=== PATIENT | female | born 1995 | race Caucasian/White ===

== ENCOUNTER 2017-10-15 17:25 | Emergency (ER) | payer OTHER ==
[~2017-10-15] VITALS: Ht 165.1 cm; Wt 86.0 kg
[~2017-10-15 17:25] MED LIST: ZIPR1CAP27 PO; ZOFR4TAB3 SL
[2017-10-15 17:38] VITALS: BP 147/56; PULSE 99; RESP 18; TEMP 99.1; O2SAT 97
[2017-10-15] MEDS ORDERED: SODIUM CHLOR 0.9% 1000 ML INJ 1,000 ML IV SCH (22:18)
--- NOTE | 2017-10-15 22:24 | PD ---
HPI Chief Complaint: GI Complaint Time Seen by Provider: 22:13 Travel History International Travel<30 days: No Contact w/Intl Traveler<30days: No Traveled to known affect area: No History of Present Illness HPI The patient is a 22-year-old female who presents to the emergency department for nausea and vomiting in . The patient is a 22-year-old female who states she is currently homeless in this is causing a lot of stress and anxiety in her life. The patient states she is currently 14 weeks and when she worries about her living conditions she will become lightheaded, dizzy, developed a headache, and then have nausea followed by vomiting. The patient states she was seen in the emergency department a one prior visit and given a list of shelters and outpatient resources, however, she states she keeps getting sent in a [place] and nobody is able to help her current living situation. The patient denies any lower abdominal pain, vaginal bleeding, or discharge. The patient states the pain is epigastric and starts after vomiting. Symptoms are moderate, appear to be exacerbated by her current living situation is homeless and anxiety. The patient states she is currently trying to sell her car, with sleep in her car, however, the car is unregistered. The patient states she has no local family and no funds to secure housing. [facility] Past Medical History Diminished Hearing: No ?: Social History Alcohol Use: No Tobacco Use: No Substance Use: Yes (Marijuana use occasionally) Allergies-Medications (Allergen,Severity, Reaction): Coded Allergies: No Known Allergies (Unverified , 10/15/17) Reported Meds & Prescriptions Reported Meds & Active Scripts Active Zofran Odt (Ondansetron Odt) 4 Mg Tab 4 Mg SL Q6HR PRN Review of Systems Except as stated in HPI: all other systems reviewed are Neg General / Constitutional: No: Fever Cardiovascular: No: Chest Pain or Discomfort Respiratory: No: Shortness of Breath Gastrointestinal: Positive: Nausea, Vomiting, Abdominal Pain Genitourinary: No: Dysuria Physical Exam Narrative GENERAL: Awake, alert, tearful 22-year-old female who appears her stated age and is in no acute respiratory distress. SKIN: Focused skin assessment warm/dry. HEAD: Atraumatic. Normocephalic. EYES: Mild injection secondary to crying. ENT: No nasal bleeding or discharge. Mucous membranes pink and moist. NECK: Trachea midline. No JVD. CARDIOVASCULAR: Regular rate and rhythm. No murmur appreciated. RESPIRATORY: No accessory muscle use. Clear to auscultation. Breath sounds equal bilaterally. GASTROINTESTINAL: Abdomen soft, minimal epigastric tenderness, negative Pugh' s. MUSCULOSKELETAL: No obvious deformities. No clubbing. No cyanosis. No edema. NEUROLOGICAL: Awake and alert. No obvious cranial nerve deficits. Motor grossly within normal limits. Normal speech. PSYCHIATRIC: Appropriate mood and affect; insight and judgment normal. Data Data Last Documented VS Vital Signs Date Time Temp Pulse Resp B/P (MAP) Pulse Ox O2 Delivery O2 Flow Rate FiO2 10/15/17 22:26 18 99 Room Air 10/15/17 17:38 99.1 99 147/56 (86) Orders Orders Complete Blood Count With Diff (10/15/17 22:18) Comprehensive Metabolic Panel (10/15/17 22:18) Lipase (10/15/17 22:18) Urinalysis - C+S If Indicated (10/15/17 22:18) Iv Access Insert/Monitor (10/15/17 22:18) Ecg Monitoring (10/15/17 22:18) Oximetry (10/15/17 22:18) Sodium Chlor 0.9% 1000 Ml Inj (Ns 1000 M (10/15/17 22:18) Sodium Chloride 0.9% Flush (Ns Flush) (10/15/17 22:30) Ondansetron Odt (Zofran Odt) (10/15/17 22:30) Ed Poc Ultrasound (10/15/17 ) Sodium Chlor 0.9% 1000 Ml Inj (Ns 1000 M (10/15/17 23:30) Labs Laboratory Tests Test 10/15/17 22:45 White Blood Count 15.5 TH/MM3 Red Blood Count 4.62 MIL/MM3 Hemoglobin 14.4 GM/DL Hematocrit 41.4 % Mean Corpuscular Volume 89.6 FL Mean Corpuscular Hemoglobin 31.3 PG Mean Corpuscular Hemoglobin Concent 34.9 % Red Cell Distribution Width 12.8 % Platelet Count 317 TH/MM3 Mean Platelet Volume 8.3 FL Neutrophils (%) (Auto) 65.8 % Lymphocytes (%) (Auto) 25.6 % Monocytes (%) (Auto) 6.3 % Eosinophils (%) (Auto) 1.8 % Basophils (%) (Auto) 0.5 % Neutrophils # (Auto) 10.2 TH/MM3 Lymphocytes # (Auto) 4.0 TH/MM3 Monocytes # (Auto) 1.0 TH/MM3 Eosinophils # (Auto) 0.3 TH/MM3 Basophils # (Auto) 0.1 TH/MM3 CBC Comment AUTO DIFF Urine Color YELLOW Urine Turbidity HAZY Urine pH 6.0 Urine Specific [place] 1.016 Urine Protein NEG mg/dL Urine Glucose (UA) NEG mg/dL Urine Ketones 80 OR GREATER mg/dL Urine Occult Blood NEG Urine Nitrite NEG Urine Bilirubin NEG Urine Urobilinogen LESS THAN 2 mg/dL Urine Leukocyte Esterase NEG Urine RBC 1 /hpf Urine WBC 5 /hpf Urine Squamous Epithelial Cells 10 /hpf Urine Amorphous Sediment RARE Urine Bacteria RARE /hpf Urine Mucus MANY /lpf Microscopic Urinalysis Comment CULT NOT INDICATED Blood Urea Nitrogen 5 MG/DL Creatinine 0.63 MG/DL Random Glucose 83 MG/DL Total Protein 8.7 GM/DL Albumin 3.9 GM/DL Calcium Level 9.5 MG/DL Alkaline Phosphatase 58 U/L Aspartate Amino Transf (AST/SGOT) 14 U/L Alanine Aminotransferase (ALT/SGPT) 16 U/L Total Bilirubin 0.5 MG/DL Sodium Level 140 MEQ/L Potassium Level 3.4 MEQ/L Chloride Level 105 MEQ/L Carbon Dioxide Level 25.5 MEQ/L Anion Gap 10 MEQ/L Estimat Glomerular Filtration Rate 118 ML/MIN Lipase 135 U/L [facility] Medical Decision Making Medical Screen Exam Complete: Yes Emergency Medical Condition: Yes Medical Record Reviewed: Yes Interpretation(s) Laboratory Tests Test 10/15/17 22:45 White Blood Count 15.5 TH/MM3 Red Blood Count 4.62 MIL/MM3 Hemoglobin 14.4 GM/DL Hematocrit 41.4 % Mean Corpuscular Volume 89.6 FL Mean Corpuscular Hemoglobin 31.3 PG Mean Corpuscular Hemoglobin Concent 34.9 % Red Cell Distribution Width 12.8 % Platelet Count 317 TH/MM3 Mean Platelet Volume 8.3 FL Neutrophils (%) (Auto) 65.8 % Lymphocytes (%) (Auto) 25.6 % Monocytes (%) (Auto) 6.3 % Eosinophils (%) (Auto) 1.8 % Basophils (%) (Auto) 0.5 % Neutrophils # (Auto) 10.2 TH/MM3 Lymphocytes # (Auto) 4.0 TH/MM3 Monocytes # (Auto) 1.0 TH/MM3 Eosinophils # (Auto) 0.3 TH/MM3 Basophils # (Auto) 0.1 TH/MM3 CBC Comment AUTO DIFF Urine Color YELLOW Urine Turbidity HAZY Urine pH 6.0 Urine Specific [place] 1.016 Urine Protein NEG mg/dL Urine Glucose (UA) NEG mg/dL Urine Ketones 80 OR GREATER mg/dL Urine Occult Blood NEG Urine Nitrite NEG Urine Bilirubin NEG Urine Urobilinogen LESS THAN 2 mg/dL Urine Leukocyte Esterase NEG Urine RBC 1 /hpf Urine WBC 5 /hpf Urine Squamous Epithelial Cells 10 /hpf Urine Amorphous Sediment RARE Urine Bacteria RARE /hpf Urine Mucus MANY /lpf Microscopic Urinalysis Comment CULT NOT INDICATED Blood Urea Nitrogen 5 MG/DL Creatinine 0.63 MG/DL Random Glucose 83 MG/DL Total Protein 8.7 GM/DL Albumin 3.9 GM/DL Calcium Level 9.5 MG/DL Alkaline Phosphatase 58 U/L Aspartate Amino Transf (AST/SGOT) 14 U/L Alanine Aminotransferase (ALT/SGPT) 16 U/L Total Bilirubin 0.5 MG/DL Sodium Level 140 MEQ/L Potassium Level 3.4 MEQ/L Chloride Level 105 MEQ/L Carbon Dioxide Level 25.5 MEQ/L Anion Gap 10 MEQ/L Estimat Glomerular Filtration Rate 118 ML/MIN Lipase 135 U/L Differential Diagnosis Differential diagnosis include hyperemesis gravidarum, somatization, stress, anxiety, gastritis, cholecystitis, choledocholithiasis, pancreatitis, dehydration, electrolyte abnormality. Narrative Course IV was established, labs are drawn and sent, and the patient was placed on cardiac telemetry monitoring and continuous pulse oximetry monitoring. The patient was administer 1 L of IV fluids and Zofran 4 mg ODT. Case management was not in the emergency department on the night I evaluated her. She states that she has already been given literature for shelters and crisis center in the local area, however, states she keeps getting set in circles and nobody is able to provide any assistance to her. The patient also states she has no family in the local area no financial means to secure housing. White count is slightly elevated at 15.5. UA reveals 80 ketones, CMP is otherwise unremarkable. Bedside ultrasound was performed which reveals an intrauterine with positive movement and positive heart tones. The patient was shown the ultrasound as it was performed real time. The patient is advised to drink plenty fluids and follow-up with an guide dog instructor. Take a vitamin daily. Diagnosis Primary Impression: Vomiting during Referrals: [facility] call for appointment Patient Instructions: General Instructions Additional Instructions: Take a vitamin daily. Plenty fluids to stay hydrated. Follow-up with an guide dog instructor. Med/Other Pt SpecificInfo: No Change to Meds Disposition: 01 DISCHARGE HOME Condition: Stable Walt Jay MD Oct 15, 2017 22:23
[2017-10-15 22:26] VITALS: RESP 18; O2SAT 99
[2017-10-15] MEDS ORDERED: SODIUM CHLORIDE 0.9% FLUSH 10 ML FLUSH IV FLUSH PRN (22:30)
[2017-10-15] MEDS ORDERED: ONDANSETRON ODT 4 MG TAB PO ONE (22:30)
[2017-10-15 23:02] LABS: AUTOMATED NEUTROPHIL # 10.2 TH/MM3 (1.8-7.7); BASOPHIL # 0.1 TH/MM3 (0-0.2); BASOPHIL % 0.5 % (0.0-2.0); EOSINOPHIL # 0.3 TH/MM3 (0-0.4); EOSINOPHIL % 1.8 % (0.0-4.0); HEMATOCRIT 41.4 % (35.0-46.0); HEMOGLOBIN 14.4 GM/DL (11.6-15.3); LYMPH % 25.6 % (9.0-44.0); MEAN CELL VOLUME 89.6 FL (80.0-100.0); MEAN CORPUSCULAR HEMOGLOBIN 31.3 PG (27.0-34.0); MEAN CORPUSCULAR HGB CONC 34.9 % (32.0-36.0); MEAN PLATELET VOLUME 8.3 FL (7.0-11.0); MONO % 6.3 % (0.0-8.0); NEUT % 65.8 % (16.0-70.0); PLATELET COUNT 317 TH/MM3 (150-450); RED BLOOD COUNT 4.62 MIL/MM3 (4.00-5.30); RED CELL DISTRIBUTION WIDTH 12.8 % (11.6-17.2); WHITE BLOOD COUNT 15.5 TH/MM3 (4.0-11.0)
[2017-10-15 23:05] LABS: AMORPHOUS SEDIMENT, URINE RARE; BACTERIA, URINE RARE /hpf; BILIRUBIN, URINE NEG (NEG); BLOOD, URINE NEG (NEG); GLUCOSE,URINE NEG (NEG); KETONE, URINE 80 OR GREATER mg/dL (NEG); MUCUS URINE MANY /lpf (OCC); NITRITE,URINE NEG (NEG); SQUAMOUS EPITHELIAL CELL URINE 10 /hpf (0-5); URINE COLOR YELLOW (YELLW/STRAW); URINE LEUKOCYTE ESTERASE NEG (NEG)
[2017-10-15 23:17] LABS: ALBUMIN 3.9 GM/DL (3.4-5.0); ALT (GPT) 16 U/L (10-53); AST (GOT) 14 U/L (15-37); BICARBONATE 25.5 MEQ/L (21.0-32.0); BLOOD UREA NITROGEN 5 MG/DL (7-18); CALCIUM 9.5 MG/DL (8.5-10.1); CHLORIDE 105 MEQ/L (98-107); CREATININE 0.63 MG/DL (0.50-1.00); GLOMERULAR FILTRATION RATE 118 ML/MIN (>89); GLUCOSE,RANDOM 83 MG/DL (74-106); SODIUM (NA) 140 MEQ/L (136-145)
[2017-10-15 23:19] LABS: ALKALINE PHOSPHATASE 58 U/L (45-117); TOTAL BILIRUBIN ADULT 0.5 MG/DL (0.2-1.0); TOTAL PROTEIN 8.7 GM/DL (6.4-8.2)
[2017-10-15] MEDS ORDERED: SODIUM CHLOR 0.9% 1000 ML INJ 1,000 ML IV ONE (23:30)
[2017-10-15 23:58] LABS: BANDS 8 % (0-6); LYMPHOCYTES 27 % (9-44); MONOCYTES 4 % (0-8); NEUTROPHIL # MANUAL DIFF 10.4 TH/MM3 (1.8-7.7); POLYS (SEG NEUTROPHILS) 59 % (16-70); TOXIC GRANULATION 1+ (NORMAL)
== END 2017-10-16 00:36 | disposition home or self-care (01) ==
LOC: NEPD 17:25 → MERGE 17:25 → NEPD 10-16 00:36
DX: O21.9 Vomiting of pregnancy, unspecified (principal); O26.892 Other specified pregnancy related conditions, second trimester; R10.13 Epigastric pain; D72.829 Elevated white blood cell count, unspecified; R42 Dizziness and giddiness; R51 Headache; Z3A.14 14 weeks gestation of pregnancy
CPT/HCPCS: 80053; 81001; 83690; 85007; 85027; 96360; 99284; J7030